=== PATIENT | male | born 1940 | race Caucasian/White ===

== ENCOUNTER → 2016-11-19 | Outpatient (CLI) | payer OTHER | LOC: BMCIMAGING 10:04 | PROVIDERS: ATTEND Internal Medicine | DX: M25.552 Pain in left hip (principal); M16.11 Unilateral primary osteoarthritis, right hip; R79.89 Other specified abnormal findings of blood chemistry; I10 Essential (primary) hypertension; Z96.642 Presence of left artificial hip joint | CPT/HCPCS: G0463-PO ==